=== PATIENT | female | born 1960 | race Caucasian/White ===

== ENCOUNTER 2018-12-13 16:00 | Emergency (ER) | payer MEDICAID, OTHER ==
[~2018-12-13] VITALS: Ht 154.9 cm; Wt 74.0 kg
[2018-12-13 16:24] VITALS: BP 134/67; PULSE 76; RESP 19; Ht 154.9 cm; Wt 74.0 kg
[2018-12-13] MEDS ORDERED: DOXY100T20 PO (16:54)
[2018-12-13] MEDS ORDERED: IBUP-1542 PO (16:54)
--- NOTE | 2018-12-13 16:59 | ERD ---
ER Documentation Chief Complaint Chief Complaint left fourth finger pain/swelling x 5 days HPI 58-year-old female presents with left fourth finger redness and swelling of the nail for last 5 days. Started after cutting her nails. She denies fevers, purulent discharge or bleeding or restricted range of motion or weakness. ROS All systems reviewed and are negative except as per history of present illness. Medications Home Meds Active Scripts Ibuprofen* (Motrin*) 600 Mg Tab, 600 MG PO Q6, #15 TAB Prov:ROQUE WILCOX MD 12/13/18 Doxycycline Hyclate* (Doxycycline Hyclate*) 100 Mg Tablet.dr, 100 MG PO BID for 7 Days, TAB Prov:ROQUE WILCOX MD 12/13/18 Allergies Allergies: Coded Allergies: No Known Allergy (Unverified , 12/13/18) FmHx Family History: No diabetes, No coronary disease, No other Physical Exam Vitals Vital Signs Date Temp Pulse Resp B/P (MAP) Pulse Ox O2 O2 Flow FiO2 Time Delivery Rate 12/13/18 97.2 76 19 134/67 97 16:24 (89) Physical Exam Const: No acute distress Head: Atraumatic Eyes: Normal Conjunctiva ENT: Normal External Ears, Nose and Mouth. Neck: Full range of motion. No meningismus. Resp: Clear to auscultation bilaterally Cardio: Regular rate and rhythm, no murmurs Abd: Soft, non tender, non distended. Normal bowel sounds Skin: No petechiae or rashes Back: No midline or flank tenderness Ext: No cyanosis, or edema. Redness at the paronychial area of the left finger. No fluctuance. No bony tenderness or deformities. No proximal tendon tenderness or knavel sign. Neur: Awake and alert Psych: Normal Mood and Affect Procedures/MDM Via sterile technique a empiric unroofing of the perineal area was performed without appreciable pus. Patient presents with signs and symptoms of early paronychia left fourth digit without signs of abscess, tenosynovitis, doubt osteomyelitis, necrotizing fasciitis, ischemia, deficits, Fracture, dislocation based upon examination. She will be treated with doxycycline, ibuprofen, instructions for warm soaks and instructions for recheck in 2 to 3 days to evaluate for re-incision and drainage. The patient was stable with no new complaints during the ER course. Clinically, there is no current evidence to suggest meningitis, sepsis, acute abdomen, pneumonia, stroke, acute coronary syndrome, pulmonary embolism, aortic dissection or any other emergent condition appearing to require further evaluation or hospitalization. Patient counseled regarding my diagnostic impression and care plan. Prior to discharge all questions answered. Pt agrees with treatment plan and understands strict return precautions. Pt is instructed to follow up with primary care provider within 24- 48 hours. Precautionary instructions provided including instructions to return to the ER if not improving or for any worsening or changing symptoms or concerns. Disclaimer: Inadvertent spelling and grammatical errors are likely due to EHR/dictation software use and do not reflect on the overall quality of patient care. Also, please note that the electronic time recorded on this note does not necessarily reflect the actual time of the patient encounter. Departure Diagnosis: Primary Impression: Paronychia Condition: Stable Patient Instructions: Paronychia Additional Instructions: amadou conrad. cheque otor vez 2-3 jefferson otro vez para chequiar para sacar pus o para mas simptomas- markel nunez KEVIN N. MD Dec 13, 2018 16:59
== END 2018-12-13 17:32 | disposition home or self-care (01) ==
LOC: FTE 16:00
DX: L03.012 Cellulitis of left finger (principal)
CPT/HCPCS: 99283